=== PATIENT | male | born 1990 | race African-American/Black ===

== ENCOUNTER 2024-07-05 11:33 | Emergency (ER) | payer OTHER, SELFPAY ==
[2024-07-05 11:38] VITALS: BP 124/82
--- NOTE | 2024-07-05 12:01 | ED.GENMED ---
History of Present Illness
General
Chief Complaint: Dizziness
Time Seen by Provider: 07/05/24 12:01
History of Present Illness
History of Present Illness:
TIME OF INITIAL ENCOUNTER: 12:05 PM
HPI: The patient presents due to dizziness that started before his rather significant nosebleed yesterday. Dizziness is persistent and he also has some nausea. I spoke to the mother at bedside who tells me that he recently 'got out of the
[place] [facility]' and was diagnosed with mental illness/schizophrenia.
EXAM:
GENERAL: Well appearing in no distress
HEENT: Moist oral mucosa, no evidence of active bleeding from the nostrils
CARDIOVASCULAR: No murmurs, normal heart rate, regular rhythm, No chest wall tenderness
PULMONARY: No respiratory distress, breath sounds are clear and equal
ABDOMEN: Soft with no peritoneal signs, no tenderness
NEUROLOGIC: Good strength all extremities, no coordination deficits
PSYCHIATRIC: Flat affect, relatively low amount of spontaneous speech
EXTREMITIES: Nontender, no edema, moves all extremities equally
SKIN: No rash, no lesions
NUMBER AND COMPLEXITY OF PROBLEMS ADDRESSED AT THE ENCOUNTER
� Chronic conditions affecting care: Schizophrenia
� Acute Exacerbation and/or Progression of Chronic Illness: This is an acute problem
� Differential Diagnosis includes: Progression of mental illness, anemia, dehydration,
AMOUNT AND/OR COMPLEXITY OF DATA TO BE REVIEWED AND ANALYZED
� I performed an independent evaluation of and my interpretation is:
EKG: Sinus 91, normal axis, no acute ST abnormality, no old to compare
CT:
X-rays:
Laboratory Studies: Depakote level less than 10, chemistries relatively unremarkable however the creatinine is slightly elevated 1.6. CBC unremarkable.
Other:
� Review of other/old records: The mother gave me a report from June 14, 2019 as the assessment of his 'competency status'. This report indicates open charges of 'criminal attempts�murder of the first degree, aggravated assault,
propelled meso into occupied vehicle, recklessly endangerment of the person, driving well operation privileges suspended'. He was admitted to [facility] 08/23/2022 and was in their mental health observation unit on
several occasions and notes indicate that he is 'minimally engaged' and 'somewhat withdrawn'. He has history of medication noncompliance. His mental status examination revealed 'poverty of speech, brief and rare generated spontaneous comments,
appeared confused and would regularly contradict himself' his fund of knowledge was minimal. Ultimately 'a diagnosis of unspecified schizophrenia spectrum and other psychotic disorder appears to be an appropriate diagnosis at this time' he has a
history of polysubstance abuse as well he ultimately was felt not competent to proceed to resolve his charges at that time and was recommended to have inpatient psychiatric treatment.
� Clinical information was obtained by an independent historian: I spoke to mother at bedside
� Prescriptions/Medications Considered but not given: Records indicate that he was supposed to be on Risperdal and Depakote
� Further testing considered but not performed:
RISK OF COMPLICATIONS AND/OR MORBIDITY OR MORTALITY OF PATIENT MANAGEMENT
� Social determinants of health affecting care: Lives at home
� Discussion with other providers:
� Escalation of care including admission/observation vs risk of discharge considered: Other than minimal borderline tachycardia, the patient's initial vital signs are unremarkable.
ANY OTHER UPDATES:
Other than some mild renal insufficiency, the patient has an unremarkable ED workup. He was given a liter of IV fluids. He apparently has an appointment to see somebody from a mental health standpoint later today.
No significant issues on reassessment. I did inform mother and patient about the renal insufficiency. Mother is not aware of any history of renal insufficiency. Recommend PMD follow-up.
Phy Exam
Physical Exam
Physical Exam:
See HPI
Course
Orders/Labs/Results
Orders:
Orders
07/05/24 11:34
EKG [Electrocardiogram (*1)] Urgent
Reason for Study: Vertigo / Dizzy
EKG- Treatment ONCE
07/05/24 12:05
0.9% Sodium Chloride 1000 ml [Nss] 1,000 ml IV BOLUS
07/05/24 12:06
Famotidine [Pepcid] 20 mg IV NOW STA
Ondansetron Injectable [Zofran] 4 mg IV NOW STA
07/05/24 12:08
Complete Blood Count/With Diff Urgent
Comprehensive Metabolic Panel Urgent
Valproic Acid Level [Depakane] Urgent
Abnormal Lab Results
07/05/24
12:08
Absolute Neuts (auto) 7.5 H 10^3/uL
(1.4-6.5)
Absolute Monos (auto) 0.8 H 10^3/uL
(0.1-0.6)
Neutrophils % 77.1 H %
(42.2-75.2)
Lymphocytes % 13.9 L %
(20.5-51.1)
Chloride 109 H mmol/L
(98-107)
Creatinine 1.6 H mg/dL
(0.7-1.3)
Glucose 111 H mg/dl
(70-99)
AST 271 H U/L
(17-59)
Valproic Acid < 10.0 L ug/ml
(50.0-120.0)
07/05/24 12:08
07/05/24 12:08
Vital Signs
Initial and Last Documented VS:
Initial Vital Signs
Temp Pulse Resp BP Pulse Ox
36.6 C 97 16 124/82 100
07/05/24 11:38 07/05/24 11:38 07/05/24 11:38 07/05/24 11:38 07/05/24 11:38
Last Documented Vital Signs
Temp Pulse Resp BP Pulse Ox
37.1 C 83 19 133/73 95
07/05/24 13:09 07/05/24 13:09 07/05/24 13:09 07/05/24 13:09 07/05/24 13:09
*Critical Care Note
Total Time (30-74mins, 75-104mins- exclusive of procedures): Not Applicable
ED Attending Note
-
Portions of this chart may have been created with voice recognition software.� Occasional wrong word or��sound alike� substitutions may have occurred due to the inherent limitations of voice recognition software.
Discharge Plan
Departure
Patient Disposition: Home (Routine Discharge)
Date of Disposition: 07/05/24
Time of Disposition: 13:04
Patient with high blood pressure during this ER visit?: Yes
Discharge Problem:
Dizziness
Instructions: Dizziness, BLOOD PRESSURE
Referrals:
NONE,* [Family Provider] -
Activity Restrictions/Additional Instructions:
The cause of your symptoms is unclear. Your white blood cell count and hemoglobin levels are normal. Other basic labs are normal however your creatinine (kidney function test) is slightly impaired with a creatinine of 1.6. It should be 1.3 or
less. I recommend that you follow-up with a primary care doctor as well. The Depakote level is undetected. Follow-up with your mental health evaluation today.
Interventions
Interventions:
*Risk Screen - Suicide Last Done: 07/05/24 11:38
*General Assessment Last Done: 07/05/24 13:12
*Neglect/Abuse Screening Last Done: 07/05/24 11:38
*ED- Fall Risk Assessment Last Done: 07/05/24 13:12
*ED COVID-19 Vaccine History Last Done: 07/05/24 13:12
*Nursing Disposition Last Done: 07/05/24 13:12
ED- Neurological Assessment Last Done: 07/05/24 12:05
ED- Cardiac Assessment Last Done: 07/05/24 13:12
ED Swallowing Screen Last Done: 07/05/24 12:05
Discharge Date and Time
Discharge Date/Time: 07/05/24 13:14
Print Language: INDONESIAN
[2024-07-05 12:04] VITALS: BP 128/90
[2024-07-05 12:05] VITALS: BMI 30.9
[2024-07-05 12:16] VITALS: BP 130/95
[2024-07-05 12:17] VITALS: BP 147/89
[2024-07-05] MEDS: NSS 1000 IV (12:17)
[2024-07-05] MEDS: PEPCID 20 MG IV (12:23)
[2024-07-05 12:25] VITALS: BP 128/90; BP 130/95; BP 147/89; PULSE 101; PULSE 84; PULSE 90
[2024-07-05 12:27] LABS: % Basophils 0.3 % (0-2); % Immature Granulocytes 0.3 % (0-0.5); % Lymphocytes 13.9 % (20.5-51.1); % Monocytes 8.4 % (1.7-9.3); % Neutrophils 77.1 % (42.2-75.2); Absolute Lymphocytes 1.4 10^3/uL (1.2-3.4); Absolute Monocytes 0.8 10^3/uL (0.1-0.6); Absolute Neutrophils 7.5 10^3/uL (1.4-6.5); Hematocrit 42.3 % (39.0-52.0); Mean Corp Hgb Conc. 35.5 g/dL (33.0-37.0); Mean Corpuscular Hgb 30.6 pg (27.0-31.0); Mean Corpuscular Volume 86.3 fL (80.0-94.0); Mean Platelet Volume 10.1 fL (7.4-10.4); Nucleated Red Blood Cells % 0 % (-); Platelet Count 308 10^3/uL (130-400); Red Cell Dist. Width 12.9 % (11.5-14.5); White Blood Cell Count 9.8 10^3/uL (4.8-10.8)
[2024-07-05 12:40] LABS: ALT (SGPT) 26 U/L (0-50); AST (SGOT) 271 U/L (17-59); Albumin 4.6 g/dl (3.5-5.0); Alkaline Phosphatase 46 U/L (38-126); Blood Urea Nitrogen 18 mg/dl (9-20); Calcium 9.4 mg/dl (8.4-10.2); Carbon Dioxide 22 mmol/L (22-30); Chloride 109 mmol/L (98-107); Estimated Creatinine Clearance 68 ml/min; Glucose 111 mg/dl (70-99); Potassium 4.1 mmol/L (3.5-5.1); Sodium 141 mmol/L (135-145); Total Bilirubin 0.7 mg/dl (0.2-1.3); Total Protein 8.2 g/dl (6.3-8.2); eGFR 57.98
[2024-07-05 12:45] LABS: Depakane < 10.0 ug/ml (50.0-120.0)
[2024-07-05 13:09] VITALS: BP 133/73
== END 2024-07-05 13:14 | disposition home or self-care (01) ==
LOC: EMR 11:33
PROVIDERS: EMERGENCY PHYSICIAN Emergency Medicine
DX: R42 Dizziness and giddiness (principal); R11.0 Nausea; N28.9 Disorder of kidney and ureter, unspecified; F20.9 Schizophrenia, unspecified
CPT/HCPCS: 96374; 96361; 99284; 80053; 80164; 85025; 93005